=== PATIENT | male | born 1995 | race Hispanic/Latino ===

== ENCOUNTER 2020-12-27 19:49 | Emergency (ER) | payer SELFPAY ==
[2020-12-27] MEDS ORDERED: Dexamethasone 10 MG/ML VIAL ONE (20:36)
[2020-12-27] MEDS ORDERED: Acetaminophen 500 MG TAB ONE (20:37)
== END 2020-12-27 20:59 | disposition home or self-care (01) ==
LOC: CSHERS 19:49
DX: J02.0 Streptococcal pharyngitis (principal)
CPT/HCPCS: 99283; J1100